=== PATIENT | female | born 1945 | race Caucasian/White ===

== ENCOUNTER 2019-07-07 16:28 | Outpatient (CLI) | payer MEDICARE ==
--- NOTE | 2019-07-07 16:52 | RAD ---
EXAM: XR Pelvis AP STANDARD PROVIDED CLINICAL HISTORY: Sacroiliitis COMPARISON: None FINDINGS: No evidence for fracture or other acute osseous abnormality. Hip joint spaces appear preserved. Sacro iliac joints appear normal. No lytic or blastic lesions are seen. IMPRESSION: No radiographic evidence for sacroiliitis.
--- NOTE | 2019-07-07 16:55 | RAD ---
EXAM: XR Hips Bilat 2 View PROVIDED CLINICAL HISTORY: Sacroiliitis COMPARISON: None FINDINGS: No evidence for fracture or other acute osseous abnormality. Hip joint spaces appear preserved. Sacro iliac joints appear normal. IMPRESSION: No evidence for an acute osseous abnormality or significant arthropathy.
--- NOTE | 2019-07-07 17:06 | RAD ---
EXAM: XR Hand Rt 3 View STANDARD PROVIDED CLINICAL HISTORY: Joint pain COMPARISON: None FINDINGS: No evidence for fracture or other acute osseous abnormality. Alignment appears anatomic. Joint spaces appear preserved. Scattered IP osteophyte formation. No erosive changes are evident. Soft tissues appear radiographically unremarkable. IMPRESSION: Scattered IP degenerative change.
--- NOTE | 2019-07-07 17:07 | RAD ---
EXAM: XR Hand Lt 3 View STANDARD PROVIDED CLINICAL HISTORY: Pain in joints COMPARISON: None FINDINGS: No evidence for fracture or other acute osseous abnormality. Alignment appears anatomic. Joint spaces appear preserved. Scattered IP osteophyte formation. No erosive changes are seen. IMPRESSION: Scattered IP degenerative change.
[2019-07-07 17:20] LABS: CK (CPK) 50 U/L (29-168); CRP (Inflammatory) Less than 0.50 mg/dL (= or < 0.5); Uric Acid 6.3 mg/dL (2.6-6.0)
[2019-07-07 17:36] LABS: Thyroid Stimulating Hormone 2.7558 uIU/mL (0.35-4.94)
[2019-07-08 15:29] LABS: Vitamin D, 25 Hydroxy 34.9 ng/ml (> 30.0)
[2019-07-08 15:45] LABS: Follow-up Chemistry Comp? YES; Follow-up Result - Chemistry REPORT FAXED
[2019-07-11 12:09] LABS: A/G Ratio 1.4 (0.7-1.7); Albumin 3.8 g/dL (2.9-4.4); Alpha 1 0.2 g/dL (0.0-0.4); Alpha 2 0.6 g/dL (0.4-1.0); Beta 1.1 g/dL (0.7-1.3); Gamma 0.8 g/dL (0.4-1.8); Globulin, Total 2.7 g/dL (2.2-3.9); M-Spike Not Observed g/dL (Not Observed)
[2019-07-11 12:12] LABS: Ref Lab Test Ordered RF QUANT; Reference Lab Name LABCORP
[2019-07-11 16:09] LABS: Cytoplasmic (C-ANCA) <1:20 titer (Neg:<1:20); Perinuclear (P-ANCA) <1:20 titer (Neg:<1:20)
== END 2019-07-07 16:29 | disposition home or self-care (01) ==
LOC: MADLAB 16:28
PROVIDERS: ATTEND Internal Medicine Rheumatology
DX: M46.1 Sacroiliitis, not elsewhere classified (principal); M25.542 Pain in joints of left hand; M25.541 Pain in joints of right hand; M19.042 Primary osteoarthritis, left hand; M19.041 Primary osteoarthritis, right hand
CPT/HCPCS: 36415; 72170; 73521; 82306; 82550; 84165; 84443; 84550; 85652; 86038; 86140; 86200; 86225; 86256

== ENCOUNTER 2021-03-22 21:12 | Emergency (ER) | payer MEDICARE ==
[2021-03-22] MEDS ORDERED: Lidocaine 1% w/Epinephrine 1:100K 20 ML VIAL ONE (21:19)
[2021-03-22] MEDS ORDERED: Boostrix 0.5 ML (Tdap) VIAL ONE (21:21)
[2021-03-22] MEDS ORDERED: Bacitracin 1 PK ONE (22:22)
== END 2021-03-22 22:27 | disposition home or self-care (01) ==
LOC: MADERS 21:12
DX: S01.111A Laceration without foreign body of right eyelid and periocular area, initial encounter (principal); W26.9XXA Contact with unspecified sharp object(s), initial encounter
CPT/HCPCS: 12013; 90715

== ENCOUNTER 2023-12-05 08:11 | Emergency (ER) | payer MEDICARE ==
[2023-12-05] MEDS ORDERED: Orphenadrine Citrate 60 MG/2 ML VIAL ONE (08:38)
[2023-12-05] MEDS ORDERED: Acetaminophen/Codeine 30-300mg Tablet ONE (08:38)
== END 2023-12-05 09:27 | disposition home or self-care (01) ==
LOC: MADERS 08:11
DX: M19.90 Unspecified osteoarthritis, unspecified site (principal); M54.42 Lumbago with sciatica, left side; E03.9 Hypothyroidism, unspecified; Z79.899 Other long term (current) drug therapy
CPT/HCPCS: 72100; 96372; J2360

== ENCOUNTER 2025-09-21 13:47 | Outpatient (CLI) | payer MEDICARE | END 2025-09-21 13:48 | disposition home or self-care (01) | LOC: MADLAB 13:47 | PROVIDERS: ATTEND Internal Medicine Rheumatology | DX: M06.4 Inflammatory polyarthropathy (principal) | CPT/HCPCS: 36415; 84550 ==